=== PATIENT | female | born 1995 | race Caucasian/White ===

== ENCOUNTER 2016-09-28 00:09 | Emergency (ER) | payer OTHER ==
[2016-09-28 00:16] VITALS: O2SAT 97
--- NOTE | 2016-09-28 01:37 | CPEKG ---
Heart Rate: 78 RR Interval: 769 P-R Interval: 156 QRSD Interval: 80 QT Interval: 368 QTC Interval: 420 P [place]: 74 QRS [place]: 52 T Wave [place]: 51 EKG Severity - NORMAL ECG - EKG Impression: SINUS RHYTHM Electronically Signed By: Lou Katz 28-Sep-2016 07:59:26
[2016-09-28] MEDS ORDERED: NS 1,000 ML IV ONE (01:53)
[2016-09-28 03:07] LABS: % IMMATURE GRANULYOCYTES 0.4 % (0.0-1.1); ABSOLUTE IMMATURE GRANULOCYTES 0.04 10^3/uL (0.00-0.10); ADD DIFF? NO; ADD MORPH? NO; ADD SCAN? NO; ATYPICAL LYMPHOCYTE FLAG 0 (0-99); FRAGMENT RBC FLAG 0 (0-99); HEMATOCRIT 42.3 % (38.0-47.0); HEMOGLOBIN 14.6 g/dL (12.6-16.3); LEFT SHIFT FLG 0 (0-99); LIPEMIA HEMOLYSIS FLAG 90 (0-99); MEAN CELL HEMOGLOBIN 30.3 pg (27.9-34.1); MEAN CELL HEMOGLOBIN CONCENTR. 34.5 g/dL (32.4-36.7); MEAN CELL VOLUME 87.8 fL (81.5-99.8); MEAN PLATELET VOLUME 10.5 fL (8.7-11.7); PLATELET CLUMPS FLAG 0 (0-99); PLATELET COUNT 241 10^3/uL (150-400); RED BLOOD CELL COUNT 4.82 10^6/uL (4.18-5.33); RED CELL DISTRIBUTION WIDTH 12.3 % (11.5-15.2)
[2016-09-28 03:28] LABS: ALANINE AMINOTRANSFERASE 29 IU/L (9-52); ALBUMIN 4.6 g/dL (3.5-5.0); ALKALINE PHOSPHATASE 73 IU/L (38-126); ANION GAP 13 mEq/L (8-16); ASPARTATE AMINOTRANSFERASE 23 IU/L (14-46); BILIRUBIN,TOTAL 0.6 mg/dL (0.1-1.4); CALCIUM 9.7 mg/dL (8.5-10.4); CARBON DIOXIDE 23 mEq/l (22-31); CHLORIDE 108 mEq/L (97-110); CREATININE 0.6 mg/dL (0.6-1.0); GLOMERULAR FILTRATION RATE > 60; GLUCOSE 82 mg/dL (70-100); POTASSIUM 3.8 mEq/L (3.5-5.2); SODIUM 144 mEq/L (134-144); TOTAL PROTEIN 8.2 g/dL (6.3-8.2)
[2016-09-28 03:40] LABS: TROPONIN I < 0.012 ng/mL (0-0.034)
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
[2016-09-28 04:08] VITALS: BP 135/78; PULSE 77; RESP 16; TEMP 98.2
== END 2016-09-28 04:07 | disposition home or self-care (01) ==
DX: R55 Syncope and collapse (principal); R07.9 Chest pain, unspecified

== ENCOUNTER → 2016-10-08 | Outpatient (CLI) | payer OTHER | LOC: BMCIMAGING 12:40 | PROVIDERS: ATTEND Family Medicine | DX: M79.604 Pain in right leg (principal) ==

== ENCOUNTER 2017-06-23 01:40 | Emergency (ER) | payer OTHER ==
[2017-06-23] MEDS ORDERED: ONDANSETRON DISINTEGRATING 4 MG TAB ONE (01:51)
[2017-06-23] MEDS ORDERED: ONDANSETRON DISINTEGRATING 4 MG TAB PO ONE (01:52)
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
[2017-06-23] MEDS ORDERED: CEFTRIAXONE IM 350 MG/ML SYRINGE IM ONE (04:32)
[2017-06-23] MEDS ORDERED: AZITHROMYCIN 250 MG TAB PO ONE (04:32)
[2017-06-23 04:49] VITALS: RESP 16; O2SAT 97
[2017-06-23 08:25] VITALS: BP 126/65; PULSE 103; TEMP 99
== END 2017-06-23 06:50 | disposition home or self-care (01) ==
LOC: EEVIPCON 01:40
DX: T76.21XA Adult sexual abuse, suspected, initial encounter (principal); S40.212A Abrasion of left shoulder, initial encounter; S20.411A Abrasion of right back wall of thorax, initial encounter; S80.211A Abrasion, right knee, initial encounter; S80.212A Abrasion, left knee, initial encounter; F10.921 Alcohol use, unspecified with intoxication delirium; X58.XXXA Exposure to other specified factors, initial encounter
CPT/HCPCS: J0696

== ENCOUNTER 2017-10-25 13:03 | Emergency (ER) | payer OTHER ==
--- NOTE | 2017-10-25 13:15 | EDPHY ---
H & P Stated Complaint: Right flank pain, sudden onset Time Seen by Provider: 10/25/17 13:14 HPI/ROS: HPI: This is a 22-year-old female who presents with Chief Complaint: Right side flank pain, sudden onset Location: Right lower quadrant Quality: Sharp, constant pain Duration: 30 min to 1 hr prior to arrival Signs and Symptoms: no fever, no nausea, no vomiting, no hematemesis, no blood in stool, no abdominal bloating, no diarrhea, no back pain, no urinary symptoms , no vaginal discharge, no indigestion, no chest pain, no shortness of breath Timing: Acute Severity: 03/07 Context: Patient is Currently on menses presents with sudden onset after eating at local [employer] restaurant of right lower quadrant sharp, constant, severe, nonradiating pain. Denies any fever/nausea/vomiting/back pain/urinary symptoms. Patient reports that she sometimes has menstrual cramping but denies this pain being similar to her previous dysmenorrhea. Denies history of kidney stones or ovarian cyst. Patient is concerned she may have appendicitis. Patient reports that she had a GI bug approximately 7 days ago but it resolved after a few days. Does not have daily bowel movements. Denies passing flatus. Patient reports that her last bowel movements approximately 2 days ago. Not passing flatus today. Modifying Factors: None Comment: ROS: see HPI Constitutional: No fever, no chills, no weight loss Eyes: No blurred vision Respiratory: No shortness of breath, no cough Cardiovascular: No chest pain, no palpitations Gastrointestinal: No nausea, no vomiting, no diarrhea, no hematemesis, no blood in stool Genitourinary: No dysuria, no blood in urine Extremities: No myalgias, no edema Neurologic: No weakness, no numbness Skin: No rashes, no petechiae Hematologic: No bruising, no bleeding MEDICAL/SURGICAL/SOCIAL HISTORY: Medical history: Hypothyroidism, depression, anxiety Surgical history: Tonsillectomy Social history: Student. CONSTITUTIONAL: Mild distress, well-appearing young adult white female, awake and alert, no obvious distress HEENT: Atraumatic and normocephalic, PERRL, EOMI. Tympanic membranes clear. Oropharynx clear, no exudate and moist pink mucosa. Airway patent. No lymphadenopathy. No meningismus. Cardiovascular: Normal S1/S2, regular rate, regular rhythm, without murmur rub or gallop. PULMONARY/CHEST: Symmetrical and nontender. Clear to auscultation bilaterally. Good air movement. No accessory muscle usage. ABDOMEN: Soft, nondistended, right lower quadrant moderate tenderness, no rebound, + guarding, no peritoneal signs, no masses or organomegaly. No CVAT. Bowel sounds heard x4 quadrants. EXTREMITIES: 2/2 pulses, strength 5/5, no deformities, no clubbing, no cyanosis or edema. NEUROLOGICAL: no focal neuro deficits. GCS 15. SKIN: Warm and dry, no erythema. no rash. Good capillary refill. Source: Patient Exam Limitations: No limitations - Personal History LMP (Females 10-55): Now Current Tetanus Diphtheria and Acellular Pertussis (TDAP): Yes - Medical/Surgical History Hx Asthma: No Hx Chronic Respiratory Disease: No Hx Diabetes: No Hx Cardiac Disease: No Hx Renal Disease: No Hx Cirrhosis: No Hx Alcoholism: No Hx HIV/AIDS: No Hx Splenectomy or Spleen Trauma: No Other PMH: hypothyroid, depression/anxiety, tonsillectomy - Social History Smoking Status: Never smoked Constitutional: Initial Vital Signs Temperature (C) 36.9 C 10/25/17 13:12 Heart Rate 100 10/25/17 13:12 Respiratory Rate 16 10/25/17 13:12 Blood Pressure 138/92 H 10/25/17 13:12 O2 Sat (%) 96 10/25/17 13:12 O2 Delivery Mode Room Air Allergies/Adverse Reactions: banana Allergy (Verified 06/23/17 01:43) Home Medications: Medication Instructions Recorded Prozac 10 MG (*) 03/10/16 Synthroid 09/28/16 Medical Decision Making - Diagnostics Imaging Results: Imaging Impressions Abdomen Ultrasound 10/25/17 13:22 Impression: Nondiagnostic evaluation, the appendix cannot be visualized. Abdomen X-Ray 10/25/17 13:53 Impression: Possible constipation. ED Course/Re-evaluation: Labs, limited abdominal ultrasound, KUB, IV fluids, urinalysis, IV medications ordered No signs reviewed upon arrival in stable. Given 1 L normal saline. Patient politely declined any pain medications at this time. 1413: Labs reviewed and grossly unremarkable Abdominal ultrasound could not visualize appendix. KUB shows IUD in place with moderate stool burden 1440: Reassessed patient who is chewing on ice chips and asking to eat food. Abdomen is soft and nontender. Doubt surgical abdomen Discussed obtaining CT abdomen and pelvis scan at this point the patient reports that pain is completely relieved and she prefers to observe. Patient politely declines pelvic ultrasound to rule out ovarian torsion, ovarian cyst as she feels complete relief at this time. Vargas criteria=2; appendicitis unlikely Given simethicone and Bentyl passed p.o. Trial prior to discharge. This patient was seen under the supervision of my secondary supervising physician. I evaluated care for this patient independently. Differential Diagnosis: Abdominal pain including but not limited to appendicitis, cholecystitis, gastritis and urinary tract infection. - Data Points Laboratory Results: Laboratory Results 10/25/17 13:35 10/25/17 13:35 10/25/17 10/25/17 10/25/17 14:30 13:35 13:35 WBC RBC Hgb Hct MCV MCH MCHC RDW Plt Count MPV Neut % (Auto) Lymph % (Auto) Frontier % (Auto) Eos % (Auto) Baso % (Auto) Nucleat RBC Rel Count Absolute Neuts (auto) Absolute Lymphs (auto) Absolute Monos (auto) Absolute Eos (auto) Absolute Basos (auto) Absolute Nucleated RBC Immature Gran % Immature Gran # Sodium 143 mEq/L mEq/L (135-145) Potassium 3.8 mEq/L mEq/L (3.5-5.2) Chloride 106 mEq/L mEq/L (97-110) Carbon Dioxide 24 mEq/l mEq/l (22-31) Anion Gap 13 mEq/L mEq/L (8-16) BUN 10 mg/dL mg/dL (7-23) Creatinine 0.7 mg/dL mg/dL (0.6-1.0) Estimated GFR > 60 Glucose 107 mg/dL H mg/dL (70-100) Calcium 9.8 mg/dL mg/dL (8.5-10.4) Total Bilirubin 0.8 mg/dL mg/dL (0.1-1.4) Conjugated Bilirubin 0.3 mg/dL mg/dL (0.0-0.5) Unconjugated Bilirubin 0.5 mg/dL mg/dL (0.0-1.1) AST 32 IU/L IU/L (14-46) ALT 57 IU/L H IU/L (9-52) Alkaline Phosphatase 81 IU/L IU/L (38-126) Total Protein 7.6 g/dL g/dL (6.3-8.2) Albumin 4.3 g/dL g/dL (3.5-5.0) Lipase 49 IU/L IU/L (23-300) Beta HCG, Qual NEGATIVE Urine Color Pending Urine Appearance Pending Urine pH Pending Ur Specific [place] Pending Urine Protein Pending Urine Ketones Pending Urine Blood Pending Urine Nitrate Pending Urine Bilirubin Pending Urine Urobilinogen Pending Ur Leukocyte Esterase Pending Urine Glucose Pending 10/25/17 13:35 WBC 7.26 10^3/uL 10^3/uL (3.80-9.50) RBC 4.75 10^6/uL 10^6/uL (4.18-5.33) Hgb 14.7 g/dL g/dL (12.6-16.3) Hct 42.3 % % (38.0-47.0) MCV 89.1 fL fL (81.5-99.8) MCH 30.9 pg pg (27.9-34.1) MCHC 34.8 g/dL g/dL (32.4-36.7) RDW 12.1 % % (11.5-15.2) Plt Count 253 10^3/uL 10^3/uL (150-400) MPV 10.1 fL fL (8.7-11.7) Neut % (Auto) 58.1 % % (39.3-74.2) Lymph % (Auto) 28.9 % % (15.0-45.0) Frontier % (Auto) 9.1 % % (4.5-13.0) Eos % (Auto) 2.2 % % (0.6-7.6) Baso % (Auto) 0.7 % % (0.3-1.7) Nucleat RBC Rel Count 0.0 % % (0.0-0.2) Absolute Neuts (auto) 4.22 10^3/uL 10^3/uL (1.70-6.50) Absolute Lymphs (auto) 2.10 10^3/uL 10^3/uL (1.00-3.00) Absolute Monos (auto) 0.66 10^3/uL 10^3/uL (0.30-0.80) Absolute Eos (auto) 0.16 10^3/uL 10^3/uL (0.03-0.40) Absolute Basos (auto) 0.05 10^3/uL 10^3/uL (0.02-0.10) Absolute Nucleated RBC 0.00 10^3/uL 10^3/uL (0-0.01) Immature Gran % 1.0 % % (0.0-1.1) Immature Gran # 0.07 10^3/uL 10^3/uL (0.00-0.10) Sodium Potassium Chloride Carbon Dioxide Anion Gap BUN Creatinine Estimated GFR Glucose Calcium Total Bilirubin Conjugated Bilirubin Unconjugated Bilirubin AST ALT Alkaline Phosphatase Total Protein Albumin Lipase Beta HCG, Qual Urine Color Urine Appearance Urine pH Ur Specific [place] Urine Protein Urine Ketones Urine Blood Urine Nitrate Urine Bilirubin Urine Urobilinogen Ur Leukocyte Esterase Urine Glucose Medications Given: Discontinued Medications Sodium Chloride (Ns) 1,000 mls @ 0 mls/hr IV EDNOW ONE; Wide Open PRN Reason: Protocol Stop: 10/25/17 13:22 Last Admin: 10/25/17 13:47 Dose: 1,000 mls Morphine Sulfate (Morphine) 6 mg IVP EDNOW ONE Stop: 10/25/17 13:22 Last Admin: 10/25/17 14:00 Dose: Not Given Departure - Departure Disposition: Home, Routine, Self-Care Clinical Impression: Right lower quadrant abdominal pain Constipation Qualifiers: Constipation type: unspecified constipation type Qualified Code(s): K59.00 - Constipation, unspecified Condition: Good Instructions: Constipation (ED), Gas and Bloating (ED) Additional Instructions: Take Simethicone 80 mg every 6 hr as needed for abdominal gas pain. Take [id number] MiraLax daily as needed for constipation. Consume a minimum of 8-10 glasses of water or electrolyte fluid replacement drinks that include Gatorade, Powerade, Pedialyte. Abdominal Pain: Return to the Emergency Department immediately for increasing pain, fever, vomiting, or if not completely better in 8-[address] time [address] abdomen and pelvis scan will be ordered. Referrals: [facility],. [Clinic] - As per Instructions
[2017-10-25] MEDS ORDERED: NS 1,000 ML IV ONE (13:21)
[2017-10-25 13:46] LABS: PLATELET COUNT 253 10^3/uL (150-400)
[2017-10-25] MEDS ORDERED: SIMETHICONE 80 MG TAB CHEW PO ONE (14:40)
[2017-10-25] MEDS ORDERED: DICYCLOMINE 10 MG CAP PO ONE (14:40)
[2017-10-25 14:54] VITALS: BP 128/75; PULSE 72; RESP 18; TEMP 97.5; O2SAT 97
== END 2017-10-25 15:05 | disposition home or self-care (01) ==
DX: K59.00 Constipation, unspecified (principal); E86.9 Volume depletion, unspecified
CPT/HCPCS: J2270

== ENCOUNTER 2018-07-27 01:58 | Emergency (ER) | payer OTHER ==
[2018-07-27 02:04] VITALS: BP 133/85
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
== END 2018-07-27 02:57 | disposition home or self-care (01) ==
LOC: EDUNIT#
DX: T78.40XA Allergy, unspecified, initial encounter (principal); E03.9 Hypothyroidism, unspecified; F41.8 Other specified anxiety disorders

== ENCOUNTER 2018-11-03 20:35 | Emergency (ER) | payer OTHER ==
[2018-11-03] MEDS ORDERED: methylPREDNISolone SOD SUCC 125 MG/2 ML VIAL IVP ONE (20:46)
[2018-11-03] MEDS ORDERED: LORazepam 2 MG/ML INJ IVP ONE (20:46)
[2018-11-03] MEDS ORDERED: RANITIDINE 50 MG/2 ML VIAL IVP ONE (20:46)
--- NOTE | 2018-11-03 21:02 | EDPHY ---
H & P Stated Complaint: allergic reaction since 1814 seen at urgent care Time Seen by Provider: 11/03/18 20:43 HPI/ROS: CHIEF COMPLAINT: Shortness of breath, "I'm having allergic reaction" HISTORY OF PRESENT ILLNESS: 23-year-old female with history of asthma , anxiety , seasonal allergies, initially went to urgent care this evening after she was in a hot yoga class and started developed dyspnea. She went to and urgent care and was told that she was experiencing "slow onset anaphylaxis" was given epinephrine and Benadryl with resolution of symptoms. She was discharged. She then when out to dinner and notes return of dyspnea. Denies: Chest pain, rash , itching, abdominal pain, nausea, vomiting, wheezing, sensation of tonsillar glossal edema. PRIMARY CARE PROVIDER: REVIEW OF SYSTEMS: 10 systems reviewed and negative with the exception of the elements mentioned in the history of present illness PAST MEDICAL & SURGICAL HISTORY: Anxiety, asthma, seasonal allergies SOCIAL HISTORY: Nonsmoker. No drug use. PHYSICAL EXAM (Prior to examination, patient consented to physical exam, hands were washed and my usual and customary physical exam procedures followed) 1) GENERAL: Well-developed, well-nourished, alert and oriented. Appears anxious , hyperventilating. Saturations in the mid 90s 2) HEAD: Normocephalic, atraumatic 3) HEENT: Pupils equal, round, reactive to light bilaterally. Sclera anicteric. Nasopharynx, oropharynx, clear, no lesions. Moist Mucous membranes. No tonsillar glossal enlargement Ears bilaterally with normal tympanic membranes. 4) NECK: Full range of motion, no meningeal signs. 5) LUNGS: Clear auscultation bilaterally, no wheezes, no rhonchi, no retractions. 6) HEART: Regular rate and rhythm, no murmur, no heave, no gallop. 7) ABDOMEN: No guarding, no rebound, no focal tenderness, negative McBurney's, negative Castaneda's, negative Rovsing's, negative peritoneal sign, 8) MUSCULOSKELETAL: Moving all extremities, no focal areas of tenderness, no obvious trauma. No peripheral edema or discoloration. 9) BACK: No CVA tenderness, no midline vertebral tenderness, no fluctuance, no step-off, no obvious trauma, no visual or palpable abnormality. 10) SKIN: No rash, no petechiae. No erythema. No urticaria. 11) Psychiatric: Patient is oriented X 3, there is no agitation. DIFFERENTIAL DIAGNOSIS: In no particular order including but not limited to acute asthma exacerbation, anaphylaxis, pneumothorax, acute anxiety - Personal History LMP (Females 10-55): 1-7 Days Ago Current Tetanus Diphtheria and Acellular Pertussis (TDAP): Yes - Medical/Surgical History Hx Asthma: No Hx Chronic Respiratory Disease: No Hx Diabetes: No Hx Cardiac Disease: No Hx Renal Disease: No Hx Cirrhosis: No Hx Alcoholism: No Hx HIV/AIDS: No Hx Splenectomy or Spleen Trauma: No Other PMH: hypothyroid, depression/anxiety, tonsillectomy - Social History Smoking Status: Never smoked Constitutional: Initial Vital Signs Temperature (C) 36.9 C 11/03/18 20:38 Heart Rate 118 H 11/03/18 20:38 Respiratory Rate 20 11/03/18 20:38 Blood Pressure 153/85 H 11/03/18 20:38 O2 Sat (%) 98 11/03/18 20:38 O2 Delivery Mode Room Air Allergies/Adverse Reactions: banana Allergy (Verified 06/23/17 01:43) peanut Allergy (Verified 07/27/18 02:00) Home Medications: Medication Instructions Recorded Synthroid 09/28/16 Prozac 10 MG (*) 11/03/18 Singulair 11/03/18 predniSONE [Prednisone] 60 mg PO DAILY #9 tablet 11/03/18 Medical Decision Making - Diagnostics Imaging Results: Imaging Impressions Chest X-Ray 11/03/18 21:44 Impression: Clear lungs. No edema. Images reviewed myself ED Course/Re-evaluation: 11:00 p.m.: Re-evaluation with serial exams was recently at this time. Heart rate in the 90s. Patient resting comfortably. patient feeling improvement. Lungs are clear bilaterally, airway is patent, swallowing her secretions with the ease. She requested I speak with her mother and provided verbal consent to disclose medical information. Mother and I spoke at this time. Awaiting chest x-ray and EKG. If these are normal I think the patient can be safely discharged home. She has been given a dose of Solu-Medrol in the ER and has been informed that biphasic reaction is a possibility however at this time as the patient lives locally I think she can be safely discharged. 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 Leslie Torres. Will prescribe prednisone 60 mg x3 days. We discussed other possibilities beyond allergic reaction including, but not limited to, PE which I think is less than likely in the presence of negative D-dimer; pneumothorax which is unlikely in absence of such finding on chest x-ray; as well as acute anxiety. - Data Points Laboratory Results: Laboratory Results 11/03/18 21:05 11/03/18 21:05 11/03/18 11/03/18 11/03/18 21:05 21:05 21:05 WBC RBC Hgb Hct MCV MCH MCHC RDW Plt Count MPV Neut % (Auto) Lymph % (Auto) [place] % (Auto) Eos % (Auto) Baso % (Auto) Nucleat RBC Rel Count Absolute Neuts (auto) Absolute Lymphs (auto) Absolute Monos (auto) Absolute Eos (auto) Absolute Basos (auto) Absolute Nucleated RBC Immature Gran % Immature Gran # D-Dimer 0.36 ug/mLFEU ug/mLFEU (0.00-0.50) Sodium 137 mEq/L mEq/L (135-145) Potassium 3.5 mEq/L mEq/L (3.5-5.2) Chloride 105 mEq/L mEq/L (97-110) Carbon Dioxide 22 mEq/l mEq/l (22-31) Anion Gap 10 mEq/L mEq/L (6-14) BUN 11 mg/dL mg/dL (7-23) Creatinine 0.8 mg/dL mg/dL (0.6-1.0) Estimated GFR > 60 Glucose 131 mg/dL H mg/dL (70-100) Calcium 9.0 mg/dL mg/dL (8.5-10.4) Beta HCG, Qual NEGATIVE 11/03/18 21:05 WBC 9.98 10^3/uL H 10^3/uL (3.80-9.50) RBC 4.62 10^6/uL 10^6/uL (4.18-5.33) Hgb 14.0 g/dL g/dL (12.6-16.3) Hct 39.9 % % (38.0-47.0) MCV 86.4 fL fL (81.5-99.8) MCH 30.3 pg pg (27.9-34.1) MCHC 35.1 g/dL g/dL (32.4-36.7) RDW 12.2 % % (11.5-15.2) Plt Count 198 10^3/uL 10^3/uL (150-400) MPV 10.4 fL fL (8.7-11.7) Neut % (Auto) 49.8 % % (39.3-74.2) Lymph % (Auto) 37.0 % % (15.0-45.0) [place] % (Auto) 9.7 % % (4.5-13.0) Eos % (Auto) 2.6 % % (0.6-7.6) Baso % (Auto) 0.7 % % (0.3-1.7) Nucleat RBC Rel Count 0.0 % % (0.0-0.2) Absolute Neuts (auto) 4.97 10^3/uL 10^3/uL (1.70-6.50) Absolute Lymphs (auto) 3.69 10^3/uL H 10^3/uL (1.00-3.00) Absolute Monos (auto) 0.97 10^3/uL H 10^3/uL (0.30-0.80) Absolute Eos (auto) 0.26 10^3/uL 10^3/uL (0.03-0.40) Absolute Basos (auto) 0.07 10^3/uL 10^3/uL (0.02-0.10) Absolute Nucleated RBC 0.00 10^3/uL 10^3/uL (0-0.01) Immature Gran % 0.2 % % (0.0-1.1) Immature Gran # 0.02 10^3/uL 10^3/uL (0.00-0.10) D-Dimer Sodium Potassium Chloride Carbon Dioxide Anion Gap BUN Creatinine Estimated GFR Glucose Calcium Beta HCG, Qual Medications Given: Discontinued Medications Lorazepam (Ativan Injection) 1 mg IVP EDNOW ONE Stop: 11/03/18 20:47 Last Admin: 11/03/18 20:54 Dose: 1 mg Methylprednisolone Sodium Succinate (Solu-Medrol) 125 mg IVP EDNOW ONE Stop: 04/08/19 20:47 Last Admin: 11/03/18 20:51 Dose: 125 mg Ranitidine HCl (Zantac) 50 mg IVP EDNOW ONE Stop: 11/03/18 20:47 Last Admin: 11/03/18 20:56 Dose: 50 mg Departure - Departure Disposition: Home, Routine, Self-Care Clinical Impression: Allergic reaction Qualifiers: Encounter type: initial encounter Qualified Code(s): T78.40XA - Allergy, unspecified, initial encounter Condition: Good Instructions: Allergies (ED) Additional Instructions: At the 1st sign of allergic reaction, use your EpiPen and call 911. Referrals: Leslie Torres MD [place] [place] - 1-2 days without fail Stand Alone Forms: School Excuse Prescriptions: predniSONE [Prednisone] 60 mg PO DAILY #9 tablet
[2018-11-03 21:14] LABS: PLATELET COUNT 198 10^3/uL (150-400)
[2018-11-03 23:12] VITALS: BP 128/62
--- NOTE | 2018-11-06 13:38 | CPEKG ---
Test Reason : OPEN Blood Pressure : / mmHG Vent. Rate : 098 BPM Atrial Rate : 098 BPM P-R Int : 150 ms QRS Dur : 084 ms QT Int : 362 ms P-R-T Axes : 075 046 048 degrees QTc Int : 463 ms Sinus rhythm Probable left atrial enlargement Confirmed by Yahaira Kingsley ([id number]) on 11/06/2018 1:37:50 PM Referred By: Ester Ojeda Confirmed By:Yahaira Kingsley
== END 2018-11-03 23:17 | disposition home or self-care (01) ==
DX: T78.40XA Allergy, unspecified, initial encounter (principal)
CPT/HCPCS: 96374; J2060; J2780; J2930

== ENCOUNTER → 2018-11-04 | Outpatient (CLI) | payer OTHER | LOC: BMCIMAGING 14:03 | PROVIDERS: ATTEND Family Medicine | DX: T78.40XA Allergy, unspecified, initial encounter (principal); J98.09 Other diseases of bronchus, not elsewhere classified ==